=== PATIENT | female | born 1985 | race Caucasian/White ===

== ENCOUNTER 2023-10-23 23:07 | Emergency (ER) | payer SELFPAY ==
[2023-10-23 23:19] VITALS: BP 180/95; PULSE 92; TEMP 36.7; O2SAT 99
--- NOTE | 2023-10-24 00:12 | PC.NURSE ---
Patient states she is having pain in her left hip that started yesterday. 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 She is afraid the cyst has come back. 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
--- NOTE | 2023-10-24 00:32 | ED.EXTPRO1 ---
HPI - Extremity Problem General Chief complaint: Extremity Problem, Nontraumatic Stated complaint: LT HIP PAIN Time Seen by Provider: 10/24/23 00:26 Source: patient Mode of arrival: walk-in Limitations: no limitations History of Present Illness HPI Narrative: presents complaining of pain of her left hip and points to her left sciatica joint. no weakness or numbness of her lower ext. No problem controlling bowel or bladder. No fever. Denies injury Related Data Home Medications ?Medication ?Instructions ?Recorded ?Confirmed dextroamphetamine-amphetamine ER PO 10/23/23 30 mg 24hr capsule,extend release escitalopram oxalate 20 mg tablet mg 10/23/23 famotidine 20 mg tablet mg 10/23/23 lisinopril 10 mg tablet mg 10/23/23 Allergies Allergy/AdvReac Type Severity Reaction Status Date / Time tramadol [From [facility]] Allergy Unknown Verified 10/23/23 23:25 oxycodone Allergy Rash Verified 10/23/23 23:25 Review of Systems ROS Status of ROS 10 or more systems reviewed and unremarkable except as noted in history and below Exam Constitutional Vital Signs, click to edit/add: Last Vital Signs Temp 98.0 F 10/23/23 23:19 Pulse 92 H 10/23/23 23:19 Resp 18 10/23/23 23:19 BP 180/95 H 10/23/23 23:19 Pulse Ox 99 10/23/23 23:19 O2 Del Method Room Air 10/23/23 23:19 Common normals: no apparent distress, average body habitus, oriented x3, no limitations, healthy appearing and alert [facility] [place] Common normals: normocephalic and head/scalp atraumatic Eye Common normals: PERRL, EOMs intact bilaterally and conjunctivae normal Respiratory Common normals: normal respiratory effort, no retractions, no use of accessory muscles and clear to auscultation bilaterally Cardio Common normals: regular rate, regular rhythm, S1 normal heart sound and S2 normal heart sound GI Common normals: Normal to inspection, nondistended, normoactive bowel sounds present, soft to palpation and non-tender Back & Pelvis Other: left SI joint tenderness Extremity Common normals: normal to inspection and full ROM Neuro Common normals: oriented x3, CN's II-XII intact bilaterally, moves all extremities and no focal motor deficits Psych Appearance: grossly normal Course Vital Signs Vital signs: Vital Signs Temperature 98.0 F 10/23/23 23:19 Pulse Rate 92 H 10/23/23 23:19 Respiratory Rate 18 10/23/23 23:19 Blood Pressure 180/95 H 10/23/23 23:19 Pulse Oximetry 99 10/23/23 23:19 Oxygen Delivery Method Room Air 10/23/23 23:19 Temperature 98.0 F 10/23/23 23:19 Pulse Rate 92 H 10/23/23 23:19 Respiratory Rate 18 10/23/23 23:19 Blood Pressure 180/95 H 10/23/23 23:19 Pulse Oximetry 99 10/23/23 23:19 Oxygen Delivery Method Room Air 10/23/23 23:19 MDM - Extremity (Nontraumatic) MDM Narrative Medical decision making narrative: patient presents with left sided sciatica symptoms. Inflammatory markers WNL. Pain improved after intervention in the department and patient is discharged with prescription for prednisone and Toradol Lab Data Labs: Lab Results 10/24/23 Range/Units 00:51 WBC 11.2 H (4.0-11.0) 10^3/uL RBC 4.45 (4.20-5.40) 10^6/uL Hgb 14.2 (12.0-16.0) g/dL Hct 41.9 (36.0-48.0) % MCV 94.2 (81.0-99.0) fL MCH 31.9 (26.7-34.0) pg MCHC 33.9 (29.9-35.2) g/dL RDW 13.2 (11.0-15.0) % Plt Count 507 H (150-450) 10^3/uL MPV 8.7 L (9.5-13.5) fL Neut % (Auto) 58.1 (43.0-75.0) % Lymph % (Auto) 30.8 (20.5-60.0) % [place] % (Auto) 5.3 (1.7-12.0) % Eos % (Auto) 4.7 (0.9-7.0) % Baso % (Auto) 0.7 (0.2-2.0) % Neut # (Auto) 6.5 (1.4-6.5) 10^3/uL Lymph # (Auto) 3.5 (1.2-3.8) 10^3/uL [place] # (Auto) 0.6 (0.3-0.8) 10^3/uL Eos # (Auto) 0.5 (0.0-0.7) 10^3/uL Baso # (Auto) 0.1 (0.0-0.1) 10^3/uL Abs Immat Gran (auto) 0.04 H (0.00-0.03) 10^3/uL Imm/Tot Granulo (auto) 0.4 (0.0-0.5) % ESR 22 H (<=20) mm/hr Sodium 141 (136-145) mmol/L Potassium 4.0 (3.5-5.1) mmol/L Chloride 107 (98-107) mmol/L Carbon Dioxide 25.5 (21.0-32.0) mmol/L Anion Gap 12.5 BUN 18.0 (7.0-18.0) mg/dL Creatinine 0.72 (0.55-1.02) mg/dL Est GFR ( Amer) >60 (>=60) Est GFR (Non-Af Amer) >60 (>=60) BUN/Creatinine Ratio 25.0 Glucose 101 (74-106) mg/dL Calcium 8.6 (8.5-10.1) mg/dL C-Reactive Protein <0.50 (<=0.50) mg/dL Discharge Plan Discharge Stand Alone Forms: Portal Instructions Chief Complaint: Extremity Problem, Nontraumatic Clinical Impression: Sciatica Patient Disposition: Home, Self-Care Prescriptions / Home Meds: No Action famotidine 20 mg tablet lisinopril 10 mg tablet dextroamphetamine-amphetamine 30 mg capsule,extended release 24hr PO escitalopram oxalate 20 mg tablet Print Language: Faroese Instructions: Sciatica (ED) Additional Instructions: follow up with your doctor next week Referrals: Florence Martin NP [Primary Care Provider] - 1 week
[2023-10-24 01:00] LABS: Basophils Absolute Auto 0.1 10^3/uL (0.0-0.1); Basophils Percent Auto 0.7 % (0.2-2.0); Eosinophils Absolute Auto 0.5 10^3/uL (0.0-0.7); Eosinophils Percent Auto 4.7 % (0.9-7.0); Hematocrit 41.9 % (36.0-48.0); Hemoglobin 14.2 g/dL (12.0-16.0); Immature Granulocytes Abs Auto 0.04 10^3/uL (0.00-0.03); Immature Granulocytes Pct Auto 0.4 % (0.0-0.5); Lymphocytes Absolute Auto 3.5 10^3/uL (1.2-3.8); Lymphocytes Percent Auto 30.8 % (20.5-60.0); Mean Corpuscular HGB Conc 33.9 g/dL (29.9-35.2); Mean Corpuscular Hemoglobin 31.9 pg (26.7-34.0); Mean Corpuscular Volume 94.2 fL (81.0-99.0); Mean Platelet Volume 8.7 fL (9.5-13.5); Monocytes Absolute Auto 0.6 10^3/uL (0.3-0.8); Monocytes Percent Auto 5.3 % (1.7-12.0); Neutrophils Absolute Auto 6.5 10^3/uL (1.4-6.5); Neutrophils Percent Auto 58.1 % (43.0-75.0); Platelet Count 507 10^3/uL (150-450); Red Blood Count 4.45 10^6/uL (4.20-5.40); Red Cell Distribution Width 13.2 % (11.0-15.0); White Blood Count 11.2 10^3/uL (4.0-11.0)
[2023-10-24] MEDS: METHYLPREDNISOLONE SOD SUCC PF 125 MG/2 ML VIAL IVP (01:02)
[2023-10-24] MEDS: MAGNESIUM SULFATE IN WATER 2 GM/50 ML PREMIX IV (01:02)
[2023-10-24 01:10] LABS: Anion Gap 12.5; Calcium 8.6 mg/dL (8.5-10.1); Carbon Dioxide 25.5 mmol/L (21.0-32.0); Chloride 107 mmol/L (98-107); Erythrocyte Sedimentation Rate 22 mm/hr (<=20); Estimated GFR (African America >60 (>=60); Estimated GFR (Non-African Ame >60 (>=60); Glucose 101 mg/dL (74-106); Sodium 141 mmol/L (136-145)
[2023-10-24 01:15] LABS: C Reactive Protein <0.50 mg/dL (<=0.50)
[2023-10-24] MEDS: KETOROLAC TROMETHAMINE 30 MG/ML VIAL IVP (02:12)
[2023-10-24] MEDS: KETOROLAC TROMETHAMINE 10 MG TABLET PO (03:16)
== END 2023-10-24 03:50 | disposition home or self-care (01) ==
PROVIDERS: Emergency Provider Internal Medicine; PCP Nurse Practitioner Family
DX: M54.32 Sciatica, left side (principal)
CPT/HCPCS: 36415; 80048; 85025; 85652; 86140; 96365; 96375; 99284; J1885; J2919; J3475